=== PATIENT | male | born 1965 | race Caucasian/White ===

== ENCOUNTER 2021-12-26 16:38 | Emergency (ER) | payer MEDICAID ==
[~2021-12-26] VITALS: Ht 172.7 cm; Wt 72.7 kg
[2021-12-26 16:51] VITALS: BP 141/93
[2021-12-26 19:44] LABS: BASOPHILS % (AUTO) 0.6 % (0-1); EOSINOPHILS # (AUTO) 0.1 X10'3 (0-0.9); EOSINOPHILS % (AUTO) 1.6 % (0-6); HEMATOCRIT 42.1 % (42.0-52.0); HEMOGLOBIN 14.3 g/dl (14.0-17.9); LYMPHOCYTES # (AUTO) 1.3 X10'3 (1.1-4.8); LYMPHOCYTES % (AUTO) 23.6 % (21-51); MEAN CORPUSCULAR HEMOGLOBIN 30.7 PG (27.0-31.0); MEAN CORPUSCULAR HGB CONC 34.1 g/dL (33.0-36.5); MEAN CORPUSCULAR VOLUME 90.3 FL (78-98); MEAN PLATELET VOLUME 7.2 FL (7.4-10.4); MONOCYTES # (AUTO) 0.3 X10'3 (0-0.9); NEUTROPHILS % (AUTO) 69.2 % (42-75); PLATELET COUNT 246 X10'3 (140-440); RED BLOOD COUNT 4.67 X10'6 (4.70-6.10); RED CELL DISTRIBUTION WIDTH 15.5 % (11.5-14.5); WHITE BLOOD COUNT 5.7 X10'3 (4.5-11.0)
[2021-12-26 19:54] LABS: ALANINE AMINOTRANSFERASE 34 U/L (12-78); ALBUMIN 3.6 G/DL (3.4-5.0); ALBUMIN/GLOBULIN RATIO 0.8 (1.1-1.5); ALKALINE PHOSPHATASE 110 IU/L (46-116); ANION GAP 8 (8-16); ASPARTATE AMINO TRANSFERASE 19 U/L (10-37); BILIRUBIN,TOTAL 0.4 MG/DL (0.1-1.0); BLOOD UREA NITROGEN 8 MG/DL (7-18); BUN/CREATININE RATIO 11.1 (5.4-32.0); CALCIUM 8.6 MG/DL (8.5-10.1); CHLORIDE 101 MMOL/L (99-107); CREATININE 0.72 MG/DL (0.60-1.10); GLUCOSE 85 MG/DL (70-104); POTASSIUM 3.4 MMOL/L (3.5-5.1); SODIUM 134 MMOL/L (135-145); TOTAL CARBON DIOXIDE 24.6 MMOL/L (24-32); eGFR > 90 ML/MIN
[2021-12-26] MEDS ORDERED: amox tr/potassium clavulanate 875/125mg TAB PO ONE (22:30)
[2021-12-26] MEDS ORDERED: AMOX-117 PO (22:37)
--- NOTE | 2021-12-26 22:54 | NUR ---
po med given
== END 2021-12-26 22:55 | disposition home or self-care (01) ==
LOC: ER 16:38
DX: R22.1 Localized swelling, mass and lump, neck (principal); Z88.5 Allergy status to narcotic agent
CPT/HCPCS: 36415; 70491; 80053; 85025; 99285; J3490